=== PATIENT | female | born 1990 | race Caucasian/White ===

== ENCOUNTER 2021-01-09 06:27 | Day surgery (SDC) | payer OTHER ==
--- NOTE | 2021-01-02 07:43 | HP ---
DATE OF SURGERY: 01/09/2021 HISTORY OF PRESENT ILLNESS: The patient is a 30 year-old who presented with complaints of some severe diarrhea alternating with some constipation. States there is some bloating and gassiness in the abdomen. The patient denies nausea, vomiting or rectal bleeding. She does report there is some occasional dark stools. Stating today there is some diffuse abdominal pain. No prior C-scope or EGD. PAST MEDICAL HISTORY: None reported. PAST SURGICAL HISTORY: D&C. LEEP procedure. Tubal ligation. Uterine ablation. ALLERGIES: DIFLUCAN. ZITHROMAX. MEDICATIONS: None reported. FAMILY HISTORY: Diabetes. SOCIAL HISTORY: Smokes a half pack per day. Alcohol occasionally, once a month. REVIEW OF SYSTEMS: CONSTITUTIONAL: Denies fever or chills. CHEST: Denies shortness of breath. CVS: Denies chest pain. ABDOMEN: Reports some diffuse abdominal pain. Denies nausea, vomiting. Reports diarrhea and constipation. Reports dark stool. INTEGUMENTARY: Negative. PHYSICAL EXAMINATION: GENERAL: No acute distress. CHEST: Nonlabored. No shortness of breath. CVS: Regular rate and rhythm. ABDOMEN: Soft. EXTREMITIES: No edema. NEUROLOGIC: Alert. PSYCHIATRIC: Appropriate. IMPRESSION: Dark stools, change in bowel habits, diffuse abdominal pain. PLAN: EGD and colonoscopy with Dr. Eb Gomez. We are going to get stool studies. I have also scheduled a gallbladder ultrasound and HIDA scan for this patient. As dictated by Mary Grace Marin NP.
[2021-01-09] MEDS ORDERED: Lactated Ringers 1,000 ML IV SCH (07:00)
[2021-01-09] MEDS ORDERED: DIPRIVAN 200 MG/20 ML IV ONE ×2 (09:10→09:36)
[2021-01-09] MEDS ORDERED: Versed 2 MG/2 ML Injection ONE (09:10)
[2021-01-09] MEDS ORDERED: Lactated Ringers 1,000 ML IV ONE (09:15)
[2021-01-09 10:30] VITALS: O2SAT 100
[2021-01-09 10:50] VITALS: BP 109/71; PULSE 65
[2021-01-09 16:04] LABS: 027 TOX PROD PRESUMPTIVE NEGATIVE (NEGATIVE); TOXIGENIC C. DIFF ORG NEGATIVE (NEGATIVE)
--- NOTE | 2021-01-10 12:02 | OP ---
SURGERY DATE/TIME: 01/09/2021 0914 PREOPERATIVE DIAGNOSIS: Diffuse abdominal pain, epigastric pain, diarrhea and bloating. She had an EGD demonstrating grade B gastroesophageal reflux disease. Colonoscopy demonstrating a redundant colon. She has also got a gallbladder work up pending. Anticipated rescope ten years. Prep score was excellent. POSTOPERATIVE DIAGNOSIS: Diffuse abdominal pain, epigastric pain, diarrhea and bloating. She had an EGD demonstrating grade B gastroesophageal reflux disease. Colonoscopy demonstrating a redundant colon. She has also got a gallbladder work up pending. Anticipated rescope ten years. Prep score was excellent. INDICATION: The patient has above symptoms. PROCEDURES: 1) EGD. 2) Colonoscopy. SURGEON: Eb Gomez M.D. ANESTHESIA: MAC. COMPLICATIONS: None. CONDITION: Stable. DESCRIPTION OF PROCEDURE: Taken to endoscopy. Left lateral decubitus position. Scope introduced. Pharyngoesophageal junction normal. Esophagus normal down to gastroesophageal junction. Grade B/D gastroesophageal reflux disease. Fundus, body and antrum satisfactory. Pylorus satisfactory. Duodenal bulb satisfactory. Scope withdrawn looped upon itself. There was no hiatal hernia. Scope withdrawn. Anal digital examination was satisfactory. Scope advanced to the cecum. Colon was a little redundant but otherwise was normal. Circumferential withdrawal. Base of the cecum, ascending, hepatic, transverse, splenic, descending, sigmoid, rectum, anus satisfactory. PLAN: She does have gallbladder work up pending. Findings were discussed with the family in the waiting room.
--- NOTE | 2021-01-10 12:06 | OP ---
SURGERY DATE/TIME: 01/09/2021 0914 PREOPERATIVE DIAGNOSIS: Epigastric pain, diarrhea, change in bowel habits, abdominal cramping. POSTOPERATIVE DIAGNOSIS: Grade B/D gastroesophageal reflux disease with no hiatal hernia. PROCEDURES: 1) EGD. 2) Colonoscopy complete to cecum. 3) Stool samples for stool organisms. SURGEON: Eb Gomez M.D. ANESTHESIA: MAC. COMPLICATIONS: None. CONDITION: Stable. INDICATION: A patient requiring evaluation. DESCRIPTION OF PROCEDURE: Taken to endoscopy. MAC sedation provided. Time out performed. Scope introduced. Pharyngoesophageal junction is normal. Esophagus normal down to gastroesophageal junction. Grade B/D gastroesophageal reflux disease. No hiatal hernia. Fundus, body and antrum normal. Pylorus normal. Duodenal bulb normal. Second portion normal. Scope withdrawn looped upon itself, satisfactory. Scope withdrawn. Colonoscopy complete to cecum. Anal digital examination satisfactory. Scope introduced. The colon was fairly redundant. Rectosigmoid colon junction cannulated. Sigmoid transverse. It was looped somewhat. It fairly redundant. It was able to be pulled back and straightened out. The descending, splenic. The splenic was fairly redundant. Transverse fairly redundant. Across the hepatic, ascending into the cecum. Ileocecal valve and appendiceal orifice were both normal. Bowel prep was okay not exceptional. The right side was particularly clean but on the left side there were large chunks of green Jell-O. On circumferential withdrawal no mucosal lesions were noted. Stool was sent for Clostridium difficile, ova and parasite, and stool pathogens. The patient tolerated the procedures satisfactory.
== END 2021-01-09 10:55 | disposition home or self-care (01) ==
LOC: SDC 06:27
PROVIDERS: ATTEND Surgery
DX: K21.9 Gastro-esophageal reflux disease without esophagitis (principal); R10.9 Unspecified abdominal pain; R10.13 Epigastric pain; R19.7 Diarrhea, unspecified; R14.0 Abdominal distension (gaseous); R19.4 Change in bowel habit
CPT/HCPCS: 87045; 87046; 87328; 87329; 87493; J2250; J2704